=== PATIENT | male | born 1965 | race African-American/Black ===

== ENCOUNTER 2025-03-08 11:15 | Emergency (ER) | payer OTHER, SELFPAY ==
[2025-03-08 11:22] VITALS: BP 155/94; PULSE 82; RESP 18; TEMP 36.9; O2SAT 96; BMI 41.2
--- NOTE | 2025-03-08 11:30 | ED.GENADULT ---
HPI - General Adult General Date Seen: 03/08/25 Chief complaint: Extremity Pain/Injury, Lower Stated complaint: Both back, ulcers Time Seen by Provider: 03/08/25 11:22 History of Present Illness HPI narrative: 59-year-old male presenting to the ER today with ulcers on the backs of his legs. He has a past history of hypertension (sounds like he has a strong family history of bad hypertension and his hypertension has been difficult for him to control. He typically has high blood pressure and often has diastolic blood pressure greater than 100 despite multiple antihypertensives), peripheral edema, seizure disorder (well controlled on phenytoin). He does not have any history of coronary disease or stents or known history of peripheral artery disease. No history of diabetes. 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 He has been back over the road since last August, 7 months ago. 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 He attributes this to keeping his feet down in a dependent position while driving. Several weeks for a few months ago he began to develop ulcers on his shins in the back of his calves. No trauma and no known specific reason for them to develop. They were initially blisters and then he started draining a lot of clear fluid. Then the blisters broke opened, leading to development of ulcers that have not healed since they opened. He works as an [employer] national dedicated truck driver. He grew up in [place] but now lives near [place], [place]. 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 He actually had to drive out to [facility] a couple weeks ago to attend the of his nephew who unexpectedly in a car crash. While he was in [place] he noted that he was developing redness around some of the ulcer so he saw [place] and was put on antibiotics for cellulitis. He was prescribed doxycycline and trimethoprim sulfamethoxazole. He could not take the trimethoprim because it interacts with his seizure med. He did take the doxycycline. He also feels like the redness is got a little bit better but is not resolved. He shows me pictures on his smart phone of his calves and ulcers dated February 19 and they clearly were inflamed and erythematous with a small amount of purulent material in the ulcer. He says they have gotten better since then but they are still red. Now days they are draining more clear fluid rather than pus. He came here to the [facility] today because he is currently driving, over the road and stopped off here. He was in this area of the country for work. He would like to get treatment for his ulcers and help the redness go away. He is not having any fever or chills. No shortness of breath. No chest pain. He does have his chronic peripheral edema but it is symmetric and bilateral. No unilateral swelling. He does have some burning pain in his shins in Sergio the ulcers are but otherwise no numbness in his feet. He is not diabetic. No known history of neuropathy. He knows that his blood pressure is very difficult to control any typically has elevated blood pressure with diastolic more than 100. He is pleased and surprised to see that his diastolic blood pressure is in the 90s today. This is actually low for him. He is already transitional living specialist they do all, hydrochlorothiazide, furosemide, spironolactone, losartan, and clonidine for his blood pressure. He also takes a statin. He is on phenytoin for his seizures Related Data Home Medications ?Medication ?Instructions ?Recorded ?Confirmed carvedilol 12.5 mg tablet 12.5 mg PO BID 03/08/25 03/08/25 clonidine HCl 0.2 mg tablet 0.2 mg PO BID 03/08/25 03/08/25 furosemide 40 mg tablet (Lasix) 40 mg PO DAILY 03/08/25 03/08/25 hydralazine 50 mg tablet 50 mg PO BID 03/08/25 03/08/25 indomethacin 50 mg capsule 50 mg PO BID 03/08/25 03/08/25 losartan 50 mg tablet (Cozaar) 50 mg PO DAILY 03/08/25 03/08/25 phenytoin sodium extended 100 mg 100 mg PO TID 03/08/25 03/08/25 capsule Previous Rx's ?Medication ?Instructions ?Recorded doxycycline monohydrate 100 mg 100 mg PO BID #14 caps 03/08/25 capsule furosemide 40 mg tablet 40 mg PO BID #14 tabs 03/08/25 Allergies Allergy/AdvReac Type Severity Reaction Status Date / Time No Known Drug Allergies Allergy Verified 03/08/25 11:32 Exam Narrative: Exam Narrative: Constitutional: Appears well-developed and well-nourished. Alert. Conversant. Non toxic. HENT: Head: Atraumatic. Nose: Nose normal. Mouth/Throat: Oral mucosa is clear and moist. no trismus. Pharynx normal. Tonsils symmetric. No tonsillar enlargement, erythema, or exudate. Eyes: Conjunctivae normal. EOM normal. Pupils equal, round, and reactive to light. No scleral icterus. Neck: Normal range of motion. Neck supple. No tracheal deviation present. No JVD Cardiovascular: Normal rate, regular rhythm. No gallop. No friction rub. No murmur heard. Symmetric radial artery pulses Pulmonary/Chest: Effort normal. No stridor. No respiratory distress. No wheezes. No rales. No rhonchi . No tenderness. Musculoskeletal: RUE: Normal range of motion. No tenderness. No deformity LUE: Normal range of motion. No tenderness. No deformity RLE: Normal range of motion. 2+ pitting edema. Mild tenderness of the skin on the anterior hurtado. No deformity LLE: Normal range of motion. 2+ pitting edema. Mild tenderness of the skin on the anterior hurtado. No deformity Lymph: No ascending lymphangitis Neurological: Alert and oriented to person, place, and time. Normal strength. CN II-VII intact. No sensory deficit. GCS eye subscore is 4. GCS verbal subscore is 5. GCS motor subscore is 6. Normal coordination Skin: The patient does have some hyperpigmentation of the skin of his anterior shins consistent with some chronic venous stasis disease. There are also scattered ulcers on both anterior and anteromedial shins and on both posterior calf is. Some these appear to be recently developed blisters that are just open. Others appear to be more chronic areas of skin where there is breakdown of the epidermis. None of the ulcers are deeper tunneling or penetrate through the dermis. There is some erythema surrounding the ulcers especially on the patient's left posterior calf and posterior medial calf and a little bit on the right anteromedial calf. No signs of ascending lymphangitis. No palpable fluctuance or crepitus in the soft tissue. Normal range of motion in his knees and ankles. He does have a healed anterior knee incision on his left knee from an old sports related knee injury. Skin is otherwise warm and dry. No rash noted. No pallor. Normal capillary refill. Psychiatric: Normal mood. Normal affect. Very pleasant. Const: Vital Signs, click to edit/add: Vital Signs - 24 hr 03/08/25 11:22 Temperature 98.5 F Pulse Rate [Right Pulse Oximeter] 82 Respiratory Rate 18 Blood Pressure [Ri ght Upper Arm] 155/94 H Pulse Oximetry 96 Oxygen Delivery Me thod Room Air Course Vital Signs Vital signs: Initial Vital Signs Temperature 98.5 F 03/08/25 11:22 Temperature Source Temporal Artery Scan 03/08/25 11:22 Pulse Rate 82 03/08/25 11:22 Pulse Rhythm Regular 03/08/25 11:22 Pulse Strength 3+ Normal 03/08/25 11:22 Respiratory Rate 18 03/08/25 11:22 Blood Pressure 155/94 H 03/08/25 11:22 Blood Pressure Mean 114 H 03/08/25 11:22 Blood Pressure Position Sitting 03/08/25 11:22 Pulse Oximetry 96 03/08/25 11:22 Oxygen Delivery Method Room Air 03/08/25 11:22 Vital Signs Temperature 98.5 F 03/08/25 11:22 Pulse Rate 82 03/08/25 11:22 Respiratory Rate 18 03/08/25 11:22 Blood Pressure 155/94 H 03/08/25 11:22 Pulse Oximetry 96 03/08/25 11:22 Oxygen Delivery Method Room Air 03/08/25 11:22 Temperature 98.5 F 03/08/25 11:22 Pulse Rate 82 03/08/25 11:22 Respiratory Rate 18 03/08/25 11:22 Blood Pressure 155/94 H 03/08/25 11:22 Pulse Oximetry 96 03/08/25 11:22 Oxygen Delivery Method Room Air 03/08/25 11:22 Medical Decision Making MDM Narrative Medical decision making narrative: Very pleasant 5-year-old gentleman with a complex past medical history including hypertension which has been very difficult for his doctors to get under control, chronic peripheral edema, seizure disorder. He does not have any known history of peripheral artery disease, diabetes, cancer, or immunosuppression. He presents to the ER today with concern that he has erythema on the skin of his lower legs and burning of the skin of his lower legs around the ulcers. On exam he does have some erythema there and I am concerned that there may be a cellulitis around the ulcers. I do not detect any evidence for abscess, necrotizing infection. At this point I do not think he needs admission for surgical debridement or drainage. I do not think he needs ultrasound or CT to look for deeper all infections. I do think we need to put him on antibiotics to cover for possible cellulitis. He has already been on cephalexin with her is not completely improving. He cannot take Bactrim because it interacts with his seizure med. Will try doxycycline which would give him coverage for skin alyce as well as community-acquired MRSA. Patient understands that it is very important to monitor the redness carefully and for return to the his nearest ER if it is getting worse. Even if it gets better he is to follow up with his regular doctors at home intense see his soon as possible. Ideally less than 5-7 days. At this point he is not febrile, he is not systemically ill. I do not think he needs to be admitted for IV antibiotics. Cause of the ulcers is probably related to his chronic peripheral edema. At this point he does have palpable PT pulses and I do not see any sign of acute or critical limb ischemia requiring admission for immediate vascular surgery intervention. However he may need further vascular workup with his doctors in [place]. He is already on furosemide, hydrochlorothiazide, spironolactone for his peripheral edema. Will have him temporarily increase his dose of furosemide from 40 mg once daily up to 40 mg b.i.d. for 7 days. He will follow up with his doctors at home in [place] to make sure he gets follow-up labs and kidney function check, potassium measurement within 5-7 days. I do not think the skin breakdown is Sheikh Urban's or toxic epidermal necrolysis. Based on provided history it has been there for several months and is isolated only to his lower extremities. At this point would not make any meds changes for his seizures or phenytoin. Precautions for return to the ER reviewed. Need for ongoing follow-up care for this problem is reviewed. Patient verbalizes understanding. Questions answered. Prescriptions for doxycycline 100 b.i.d. for 10 days and for furosemide 40 b.i.d. for 7 days sent to his pharmacy at [facility]. Discharge Plan Discharge Clinical Impression: Lower extremity ulceration, Edema, peripheral, Cellulitis Patient Disposition: Home, Self-Care Condition: Stable Instructions: Cellulitis (ED), Leg Edema (ED) Additional Instructions: As we discussed, to try to help get your leg wounds to heal, we are going to put you back on antibiotic. Start the new antibiotic (doxycycline) today and take it twice daily for 10 days. We are also going to have you temporarily increase your dose of your water pill (furosemide). Your normal dose of furosemide is 40 mg once per day. For the next 7 days increase to 40 mg twice per day. Stay on your other blood pressure medications. It is very important for you to get a checkup with your regular doctor in 5-7 days to have a recheck for the swelling in your legs and ulcers and also have your doctor check some blood tests to look at your kidney function and electrolytes. Please follow-up with your regular doctors at home within 5-7 days, or sooner, if possible. Please try to keep your feet elevated whenever possible. Please use antibiotic ointment and dressings on your ulcers to protect them. If you have worsening problems especially worsening ulcers, pus draining from your wounds, spreading redness, worsening swelling, or fever, please return to the ER right away. Prescriptions: New doxycycline monohydrate 100 mg capsule 100 mg PO BID Qty: 14 0RF furosemide 40 mg tablet 40 mg PO BID Qty: 14 0RF No Action phenytoin sodium extended 100 mg capsule 100 mg PO TID indomethacin 50 mg capsule 50 mg PO BID Rx Instructions: administer with food or milk carvedilol 12.5 mg tablet 12.5 mg PO BID Rx Instructions: must administer with a meal/food furosemide [Lasix] 40 mg tablet 40 mg PO DAILY hydralazine 50 mg tablet 50 mg PO BID clonidine HCl 0.2 mg tablet 0.2 mg PO BID losartan [Cozaar] 50 mg tablet 50 mg PO DAILY Stand Alone Forms: [employer] Info Instructions
--- NOTE | 2025-03-09 14:45 | ED.NURSE ---
[facility] pharmacy in [place] called regarding pt rx. Advised rx was sent to [facility] [place]. Pharmacist stated they would call [facility] and have rx txfrd to them at the pt's request.
== END 2025-03-08 12:56 | disposition home or self-care (01) ==
LOC: ED 12:38
PROVIDERS: Emergency Provider Emergency Medicine
DX: R60.0 Localized edema (principal); L03.115 Cellulitis of right lower limb; L03.116 Cellulitis of left lower limb
CPT/HCPCS: 99282; 99283

== ENCOUNTER 2025-07-02 23:35 | Emergency (ER) | payer OTHER, SELFPAY ==
--- OUTSIDE RECORDS SUMMARY | 2009-01-18 04:40 | XMS_ITS | Continuity of Care Document ---
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 [id number], [place], [address], [place]. tel:[phone] Family History Family Member Type Diagnosis Age At Onset No Information Payers Payer name Insurance type Covered alliance party ID Authordianeharjinder mata(s) [employer] CI [id number] Social History Type Description Quantity Date Captured Comments Sex Male Smoking Status No Information Chief Complaint And Reason For Visit No Information Reason For Referral Reason For Referral No Information History Of Present Illness Encounter Date Complaint History Of Prese nt Illness No Information Functional Status Date Functional Assessmen t No Information Instructions Date Instruction Additional Infor mation No Information Assessments Type Assessment Date No Information Patient Care Teams Name Effective Dates (start - stop) Status Members No Information
[2025-07-02 23:43] VITALS: BP 178/115; PULSE 106; RESP 20; TEMP 36.7; O2SAT 97; BMI 41.2
[2025-07-03] MEDS: ACETAMINOPHEN 500 MG TABLET 1000 MG PO (00:57)
--- NOTE | 2025-07-03 01:04 | ED.GENADULT ---
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 Clearly this is a chronic condition. He does not wear any type of compression socks, support stockings etc.. 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 Home is in the [facility]. He drives for a local [employer] and does spend some time up in this area but is typically over the road. He reports that he has been working the last few days and did not have time to come in otherwise besides the wee hours at an out of [facility]. No fevers. No history of DVT or PE. Is not anticoagulated. No increased swelling in the legs noted, this is his baseline. It clear based on our conversation that he picks and chooses which medications to take, is no longer using his lisinopril consider read online that it would interact with his Dilantin that he takes for trigeminal neuralgia. He does not know if he has a history of liver or kidney disease. Has not tried Tylenol, ibuprofen or other similar karb-juc-iydvzhn agents for his pain. Notice increased weeping from the posterior distal lower right leg ulcer for the past 2-3 days. Reports that this has been treated with antibiotics in the past but ulcers have never fully closed up. He has never been to a rn wound for these ulcers. Denies a history of diabetes. Denies recent systemic symptoms. Has not been recently evaluated by primary care or urgent care. We have no prior wound cultures and he is unable to tell me prior culture results but denies any prior resistant infections. Goes on a tangent about how 1 of the antibiotics he was on at 1 time may have interacted with his Dilantin. He could not remember which antibiotic. Past medical history is not well known and patient would not be considered a good historian regarding this. We do not have records. Seems like these are in the [facility]. Medications listed do seem accurate with the exception of the listed doxycycline which he is not currently using. He denies tobacco use. No recent surgery. ROS is notable for the leg symptoms only, otherwise denies systemic symptoms times 12 systems. Related Data Home Medications ?Medication ?Instructions ?Recorded ?Confirmed carvedilol 12.5 mg tablet 12.5 mg PO BID 03/08/25 03/08/25 clonidine HCl 0.2 mg tablet 0.2 mg PO BID 03/08/25 03/08/25 furosemide 40 mg tablet (Lasix) 40 mg PO DAILY 03/08/25 03/08/25 hydralazine 50 mg tablet 50 mg PO BID 03/08/25 03/08/25 indomethacin 50 mg capsule 50 mg PO BID 03/08/25 03/08/25 losartan 50 mg tablet (Cozaar) 50 mg PO DAILY 03/08/25 03/08/25 phenytoin sodium extended 100 mg 100 mg PO TID 03/08/25 03/08/25 capsule Previous Rx's ?Medication ?Instructions ?Recorded doxycycline monohydrate 100 mg 100 mg PO BID #14 caps 03/08/25 capsule furosemide 40 mg tablet 40 mg PO BID #14 tabs 03/08/25 Allergies Allergy/AdvReac Type Severity Reaction Status Date / Time No Known Drug Allergies Allergy Verified 03/08/25 11:32 Exam Const: Vital Signs, click to edit/add: Vital Signs - 24 hr 07/02/25 23:43 Temperature 98.0 F Pulse Rate [Pulse Oximeter] 106 H Respiratory Rate 20 Blood Pressure [Ri ght Upper Arm] 178/115 H Pulse Oximetry 97 Oxygen Delivery Me thod Room Air Documenting provider has reviewed patient's vital signs: yes Common normals: no apparent distress General appearance: cooperative HENMT: Common normals: normocephalic and moist oral mucous membranes Head and scalp: normocephalic Face and sinus: normal facial exam Throat: posterior oropharynx normal Eye: Common normals: conjunctivae normal General eye: normal appearance of both eyes Conjunctiva: conjunctiva(e) normal Neck & C-Spine: General: normal visual inspection Resp: Common normals: normal respiratory effort, no use of accessory muscles and clear to auscultation bilaterally Effort & inspection: able to speak in complete sentences Auscultation: clear to auscultation bilaterally Cardio: Common normals: regular rate, regular rhythm, S1 normal heart sound, S2 normal heart sound and no murmurs Rate: regular rate Rhythm: regular rhythm Heart sounds: S1 normal and S2 normal Extremity: Other: Both lower extremities have chronic swelling, healed over skin ulcers, skin thickening and hemosiderin deposits consistent with chronic venous stasis. 1 cm open area on posterior right lateral tibia with slight purulent discharge, no odor is cultured. Mild surrounding redness and warmth. No streaking of redness up the leg. There are a few other blisters on each leg but no other open wounds. There are a few healed craters that have granulated over. Bilateral 2+ dependent edema. Normal pedal pulses bilaterally no ulcerations on the feet or toes. Neuro: Common normals: moves all extremities and no focal motor deficits Motor exam: strength 5/5 throughout Psych: Appearance: grossly normal Attitude: engaged Activity/motor behavior: appropriate eye contact Skin: Narrative: Besides the right lower extremities,, no other open wounds. Course Course ED Course: 59-year-old male with bilateral chronic venous stasis ulcers, 1 with features suggestive of infection. Cultures collected. No hypotension but does have some mild tachycardia. We do not know much of this person and I am concerned with underlying chronic kidney disease or other factors that would influence my antibiotic choice. Will obtain comprehensive metabolic panel, blood culture, CBC, CRP. There are no obvious signs of osteomyelitis. Counseled patient regarding the need for compression and elevation of his legs. He asked for pain medication. I am very hesitant to use narcotics for this chronic condition. Will give Tylenol 1000 mg p.o. x1 and await blood work. Reevaluation(s) Reevaluation #1: Update: Cultures have been collected. Blood work looks pretty reassuring. No overwhelming leukocytosis. Mild elevation of CRP. No severe hyperglycemia. Does have some signs of mild chronic kidney disease, not surprising. Counseled patient on findings overall. I am hesitant to recommend high-dose NSAIDs due to his chronic kidney disease. Because he is out of town and this is mostly a chronic condition, I am also quite hesitant to give narcotics even though I do believe that this is painful for him. Discussed antibiotics. Stressed the importance of compression for treatment of the chronic venous stasis. Will cover open wound with antibiotic ointment and Telfa, instructed on wound care. Luisito wrap both legs. Continue diuretics. Follow up with primary care provider in 3 days for recheck. Start doxycycline 100 mg p.o. b.i.d. for 10 days. Limited supply of tramadol given from [place] as well for severe pain. Instructed not to drive for 8 hours. Counseled on [id number] Tylenol. Blood and wound cultures are pending. Will call patient if these are unexpectedly positive or if we need to change antibiotic treatment. Alarm symptoms reviewed that would warrant re-evaluation in ED in the interim. Vital Signs Vital signs: Initial Vital Signs Temperature 98.0 F 07/02/25 23:43 Temperature Source Temporal Artery Scan 07/02/25 23:43 Pulse Rate 106 H 07/02/25 23:43 Pulse Rhythm Regular 07/02/25 23:43 Respiratory Rate 20 07/02/25 23:43 Blood Pressure 178/115 H 07/02/25 23:43 Blood Pressure Mean 136 H 07/02/25 23:43 Blood Pressure Position Sitting 07/02/25 23:43 Pulse Oximetry 97 07/02/25 23:43 Oxygen Delivery Method Room Air 07/02/25 23:43 Vital Signs Temperature 98.0 F 07/02/25 23:43 Pulse Rate 106 H 07/02/25 23:43 Respiratory Rate 20 07/02/25 23:43 Blood Pressure 178/115 H 07/02/25 23:43 Pulse Oximetry 97 07/02/25 23:43 Oxygen Delivery Method Room Air 07/02/25 23:43 Temperature 98.0 F 07/02/25 23:43 Pulse Rate 106 H 07/02/25 23:43 Respiratory Rate 20 07/02/25 23:43 Blood Pressure 178/115 H 07/02/25 23:43 Pulse Oximetry 97 07/02/25 23:43 Oxygen Delivery Method Room Air 07/02/25 23:43 Medications Administered Medications: Discontinued Medications Generic Name Dose Route Start Last Admin Trade Name Freq PRN Reason Stop Dose Admin Acetaminophen 1,000 mg 07/03/25 00:56 07/03/25 00:57 Acetaminophen 500 Mg Tablet PO 07/03/25 00:57 1,000 mg ONCE ONE Administration Medical Decision Making Lab Data Lab results reviewed: Yes I reviewed the patient's lab results Lab results narrative: Mild chronic kidney disease. Mild elevation in CRP. No signs of hyperglycemia. No significant leukocytosis. Overall pretty reassuring. Wound culture pending Labs: Lab Results 10/24/25 Range/Units 01:12 WBC 9.50 (4.50-11.00) K/uL RBC 4.45 (4.30-5.90) m/uL Hgb 13.0 L (13.5-17.5) gm/dL Hct 39.6 (37.0-53.0) % MCV 89 (80-100) fL MCH 29 (26-34) pg MCHC 33 (32-36) gm/dL RDW Coeff of Harrison 14.5 (11.5-15.5) % Plt Count 184 (140-440) K/uL Neut % (Auto) 45.1 (42.0-72.0) % Lymph % (Auto) 39.8 (20-44) % Rhea % (Auto) 12.2 H (0.0-11.0) % Eos % (Auto) 2.4 (0.0-7.0) % Baso % (Auto) 0.4 (0.0-3.0) % Neut # (Auto) 4.28 (1.7-7.0) K/uL Lymph # (Auto) 3.78 H (0.90-2.90) K/uL Rhea # (Auto) 1.20 H (0.00-0.90) K/UL Eos # (Auto) 0.23 (0.00-0.50) K/uL Baso # (Auto) 0.04 (0.00-0.30) K/uL Abs Immat Gran (auto) 0.01 (0.00-0.30) K/uL Imm/Tot Granulo (auto) 0.1 % Sodium 133 L (135-149) mmol/L Potassium 3.4 L (3.6-5.1) mmol/L Chloride 97 (96-114) mmol/L Carbon Dioxide 29 (20-32) mmol/L Anion Gap 7 (7-15) mEq/L BUN 24 (7-30) mg/dL Creatinine 1.6 H (0.5-1.5) mg/dL Estimated Creat Clear 58.68 Estimated GFR 49 ml/min Glucose 112 (60-115) mg/dL Lactate 1.7 (0.5-1.9) mmol/L Calcium 8.9 (8.4-10.6) mg/dL Total Bilirubin 0.3 (0.1-1.5) mg/dL AST 57 H (12-35) U/L ALT 48 (4-50) U/L Alkaline Phosphatase 183 H (40-150) U/L C-Reactive Protein 2.5 H (0.5-1.0) mg/dL Total Protein 8.6 H (6.0-8.3) g/dL Albumin 4.1 (3.3-5.0) g/dL Discharge Plan Discharge Clinical Impression: Infected stasis ulcer of right lower extremity Patient Disposition: Home, Self-Care Condition: Stable Instructions: Chronic Wounds (ED) Additional Instructions: As we discussed, these blisters and swelling in your legs are from chronic weak veins it is important that you are wearing heavy compression socks or Luisito wraps to help with this chronic swelling or these wounds will never heal. When you get these blisters, the bacteria that normally live on your skin can invade and cause infections like has happened today. I am starting you on an antibiotic, doxycycline. You will take 1 pill 2 times daily for 2 weeks. This has to be treated for a long period of time due to the nature of these chronic wounds. If you do not use compression and elevation of your legs, these will never heal and will become infected again. For pain, I recommend Tylenol 1000 mg 4 times daily. I have given you a limited supply of tramadol, a narcotic pain medication that you may use for severe pain. You may carefully use NSAIDs like ibuprofen 600 mg no more than twice daily because her labs do reflect some chronic kidney disease. It is important that you are following up with your primary care provider regarding this and I would strongly recommend that you be treated with an LUISITO-inhibitor like lisinopril to prevent worsening long-term kidney damage. It will take several days before you start to notice any improvement in your symptoms. But if you have very high fever, symptoms of severe weakness, sepsis or other dangerous signs, please return to emergency department. We have drawn blood and wound cultures and will call you if we need to change antibiotics. Do not drive on the pain medication for at least 8 hours. Activity Level: Activity as Tolerated Discharge Diet: Regular Prescriptions: No Action phenytoin sodium extended 100 mg capsule 100 mg PO TID indomethacin 50 mg capsule 50 mg PO BID Rx Instructions: administer with food or milk carvedilol 12.5 mg tablet 12.5 mg PO BID Rx Instructions: must administer with a meal/food furosemide [Lasix] 40 mg tablet 40 mg PO DAILY hydralazine 50 mg tablet 50 mg PO BID clonidine HCl 0.2 mg tablet 0.2 mg PO BID losartan [Cozaar] 50 mg tablet 50 mg PO DAILY doxycycline monohydrate 100 mg capsule 100 mg PO BID Qty: 14 0RF furosemide 40 mg tablet 40 mg PO BID Qty: 14 0RF Follow Up/Referrals: Provider,Not a Local [Primary Care Provider, Family Practice] Stand Alone Forms: [employer] Info Instructions
--- OUTSIDE RECORDS SUMMARY | 2025-07-03 01:14 | XMS_ITS | Clinical Summary ---
Author Organization [facility] Address [address] [place] [address] Phone Care Team Providers Care Ethylbenzene Cracking Supervisor Name Role Phone None, No Pcp Primary Care Provider Unavailabl e Allergies No known active allergies Medications gabapentin (NEURONTIN) 300 mg capsule Take 1 capsule by mouth EVERY SHIFT 05/27/2024 Active indomethacin (INDOCIN) 50 MG capsule Take 1 capsule by mouth EVERY SHIFT 04/03/2024 Active cloNIDine (CATAPRES) 0.2 MG tablet Take 1 tablet by mouth daily Active hydrALAZINE (APRESOLINE) 50 MG tablet Take 1 tablet by mouth 3 times daily Active losartan-hydroC HLOROthiazide (HYZAAR) 50-12.5 MG per tablet Take 1 tablet by mouth daily Active Immunizations Immunization Administration Dates Next Due Tdap 12/11/2024 Social History Tobacco Use Types Packs/Day Years Used Date Smoking Tobacco: Former Cigarettes Smokeless Tobacco: Never Tobacco Cessation:Counseling Given: Not Answered Alcohol Use Standard Drinks/Week Comments Yes 0 (1 standard drink = 0.6 oz pur e alcohol) ocassionally Sex and Gender Information Value Date Recorded Sex Assigned at Not on file Legal Sex Male 3:03 AM CDT Gender Identity Not on file Sexual Orientation Not on file Last Filed Vital Signs Vital Sign Reading Time Taken Comments Blood Pressure 164/108 12/11/2024 3:53 AM CDT Pulse 78 12/11/2024 3:53 AM CDT Temperature 36.8 C (98.2 F) 12/11/2024 3:53 AM CDT Respiratory Rate 20 12/11/2024 3:53 AM CDT Oxygen Saturation 96% 12/11/2024 3:53 AM CDT Inhaled Oxygen Concentration - - Weight 152.4 kg (336 lb) 12/11/2024 3:06 AM CDT Height 190.5 cm (6' 3) 12/11/2024 3:06 AM CDT Body Mass Index 42 12/11/2024 3:06 AM CDT Plan of Treatment Health Maintenance Due Date Last Done Comments HIV Screening 1965 Colonoscopy 2009 Zoster Vaccines (1 of 2) 2014 RSV Vaccines (1 - Risk 60-74 years 1-dose series) 2024 COVID-19 Vaccine (1 - 2023-2 5 season) 2025 Influenza Vaccine (#1) 2025 Hemoglobin A1C 10/13/2027 10/13/2024 DTaP,Tdap,and Td Vaccines (3 - Td or Tdap) 12/11/2034 12/11/2024, 12/13/2023 HIB Vaccines Aged Out No longer eligi ble based on patient's age to complete this topic HPV Immunization Aged Out No longer e ligible based on patient's age to complete this topic Hepatitis A Vaccines Aged Out No long er eligible based on patient's age to complete this topic Hepatitis B Vaccine Aged Out No longe r eligible based on patient's age to complete this topic MENINGOCOCCAL VACCINES (MCV4) Aged Out No longer eligible based on patient's age to complete this topic MENINGOCOCCAL VACCINES (MenB) Aged Out No longer eligible based on patient's age to complete this topic POLIO VACCINES Aged Out No longer sergey gible based on patient's age to complete this topic ROTAVIRUS VACCINES Aged Out No longer eligible based on patient's age to complete this topic Insurance BCBS Care Teams Ethylbenzene Cracking Supervisor Relationship Specialty Start Date End Date None, No Pcp [address] [facility] [place] [address] PCP - General Family Medicine 12/11/24
--- OUTSIDE RECORDS SUMMARY | 2025-07-03 01:14 | XMS_ITS | Data Portability ---
Author Organization [place] [facility] [employer] [employer] Address [address] [place] [address] Assessment No assessment recorded. Plan of Treatment Reminders Order Date Submit Date Provider Last Modified By Organization Details Last Modified Time Details Appointments None recorded. Lab urinalysis , dipstick 2022 023 [email or web address] Main Office, [address], [place], [address], 12:53:07 Referral None recorded. Procedures None recorded. Surgeries None recorded. Imaging None recorded. Medication Orders None recorded. Patient TargetsNo targets recorded. Patient InstructionsNo instructions recorded. Reason for Referral None Reported. Results Created Date Observation Date Name Description Value Unit Range Abnormal Flag Note LastModifiedBy Organization Detail LastModifiedTime 06/15/2006/15/2023 urina lysis , dipst ick Leukocytes - Not Available Main Of fice [address], [place], [address], 06/15/2023 11:26:28 06/15/2006/15/2023 urina lysis , dipst ick Nitrite - Not Available Main Offic e [address], [place], [address], 06/15/2023 11:26:28 06/15/2006/15/2023 urina lysis , dipst ick Urobilinogen 0.2 Not Available Main Office [address], [place], [address], 06/15/2023 11:26:28 06/15/2006/15/2023 urina lysis , dipst ick Protein 15 Not Available Main Offic e [address], [place], [address], 06/15/2023 11:26:28 06/15/2006/15/2023 urina lysis , dipst ick pH 6.0 Not Available Main Offic e [address], [place], [address], 06/15/2023 11:26:28 06/15/2006/15/2023 urina lysis , dipst ick Blood - Not Available Main Offic e [address], [place], [address], 06/15/2023 11:26:28 06/15/2006/15/2023 urina lysis , dipst ick Specific [place] 1.015 Not Available Main O ffice [address], [place], [address], 06/15/2023 11:26:28 06/15/2006/15/2023 urina lysis , dipst ick Ketone - Not Available Main Offic e [address], [place], [address], 06/15/2023 11:26:28 06/15/2006/15/2023 urina lysis , dipst ick Bilirubin - Not Available Main Off ice [address], [place], [address], 06/15/2023 11:26:28 06/15/2006/15/2023 urina lysis , dipst ick Glucose - Not Available Main Offic e [address], [place], [address], 06/15/2023 11:26:28 06/15/2006/15/2023 urina lysis , dipst ick Appearance clear Not Available Main Of fice [address], [place], [address], 06/15/2023 11:26:28 06/15/20 23 06/15/2023 urina lysis , dipst ick Color Jazmyn Not Available Main Offic e [address], [place], [address], 06/15/2023 11:26:28 Result Notes None recorded. Medical Equipment None Reported. Allergies No known drug allergies Vitals Date Recorded Body height Body mass index (BMI) Body weight Body temperature Heart rate Oxygen saturation Oxygen saturation in Arterial blood by Pulse oximetry Systolic And Diastolic Provider Name and Address Organization Details Last Updated DateTime 3 190.5 cm 40.7 kg/m2 220357. 11 g 97.8 [degF] 82 /min 97 % 97 % 132/84 mm[Hg] MARISA MASCORRO - [employer] 3 11:34:20 Social History Question Answer Notes LastModified by [employer] Details LastModified Time Tobacco Smoking Status Former Smoker Not Available [employer] 06/15/2023 10:58:40 Do You Have Smoke And Carbon Monoxide Detectors In Your Home? Yes [email or web address] Information not available 06/15/2023 Sex: Unknown Functional Status Question Answer Note LastModified by [employer] Details LastModified Time What is your level of alcohol consumption? Occasional [email or web address] Information not available 06/15/2023 Do you or have you ever used smokeless tobacco? Never used smokeless tobacco [email or web address] Information not available 06/15/2023 Mental Status None recorded. Family History Nothing Reported. Medical History No medical history recorded. 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 Patient's health history and physical exam shows all normal findings as indicated on the attached DOT examinatio n report. Patient meets standards but requires periodic monitoring and qualifies only for 1 year. 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 Libra Matthews, PUMP ROOM OPERATOR [address], [place], [address], [facility] - [facility] [employer] 06/15/2023 12:53:18
[2025-07-03 01:25] LABS: Hematocrit* 39.6 % (37.0-53.0); Hemoglobin* 13.0 gm/dL (13.5-17.5); Immature Granulocytes Abs Auto 0.01 K/uL (0.00-0.30); Immature Granulocytes Pct Auto 0.1 %; Lymphocytes Absolute Auto 3.78 K/uL (0.90-2.90); Mean Corpuscular HGB Conc 33 gm/dL (32-36); Mean Corpuscular Hemoglobin 29 pg (26-34); Mean Corpuscular Volume 89 fL (80-100); RDW Coefficient of Variation % 14.5 % (11.5-15.5); Red Blood Count* 4.45 m/uL (4.30-5.90); White Blood Count* 9.50 K/uL (4.50-11.00)
[2025-07-03 01:31] LABS: Lactate Sepsis w/Reflex* 1.7 mmol/L (0.5-1.9)
[2025-07-03 01:32] LABS: Slide Review Reflex No
[2025-07-03 01:50] LABS: Chloride* 97 mmol/L (96-114)
[2025-07-03 01:51] LABS: Albumin* 4.1 g/dL (3.3-5.0); Potassium* 3.4 mmol/L (3.6-5.1); Sodium* 133 mmol/L (135-149)
[2025-07-03 01:53] LABS: Blood Urea Nitrogen* 24 mg/dL (7-30); Creatinine* 1.6 mg/dL (0.5-1.5); Est. Creatinine Clearance* 58.68; Estimated Glomerular Filt Rate 49 ml/min
[2025-07-03 01:54] LABS: Alanine Aminotransferase* 48 U/L (4-50); Alkaline Phosphatase* 183 U/L (40-150); Anion Gap 7 mEq/L (7-15); Aspartate Amino Transferase* 57 U/L (12-35); Bilirubin Total* 0.3 mg/dL (0.1-1.5); Calcium* 8.9 mg/dL (8.4-10.6); Carbon Dioxide* 29 mmol/L (20-32); Glucose* 112 mg/dL (60-115); Total Protein* 8.6 g/dL (6.0-8.3)
--- NOTE | 2025-07-05 11:29 | ED.GENADULT ---
HPI - General Adult General Chief complaint: Extremity Pain/Injury, Lower Stated complaint: right leg pain, leg ulcers Time Seen by Provider: 07/03/25 00:42 Source: patient Mode of arrival: ambulatory Limitations: no limitations History of Present Illness HPI narrative: 59-year-old male who was seen a few days ago in the ER by Dr. Whitten. Will culture this morning coming back positive for MSSA. He is already on doxycycline but this isolate is resistant to tetracyclines. I contacted the patient by phone. He states he still having intermittent pain in his ulcers but is not having fever, chills, body aches, or other symptoms of systemic illness. I think we need to change antibiotics. Will have him stop the doxycycline and switch to cephalexin. He wants to get it from [facility]. I printed out estimate prescription and he will pick it up from the ER triage desk this morning and seems to the new antibiotic. Precautions for return to the ER and need for re-evaluation reviewed with the patient. He verbalizes understanding. Related Data Home Medications ?Medication ?Instructions ?Recorded ?Confirmed carvedilol 12.5 mg tablet 12.5 mg PO BID 03/08/25 03/08/25 clonidine HCl 0.2 mg tablet 0.2 mg PO BID 03/08/25 03/08/25 furosemide 40 mg tablet (Lasix) 40 mg PO DAILY 03/08/25 03/08/25 hydralazine 50 mg tablet 50 mg PO BID 03/08/25 03/08/25 indomethacin 50 mg capsule 50 mg PO BID 03/08/25 03/08/25 losartan 50 mg tablet (Cozaar) 50 mg PO DAILY 03/08/25 03/08/25 phenytoin sodium extended 100 mg 100 mg PO TID 03/08/25 03/08/25 capsule Previous Rx's ?Medication ?Instructions ?Recorded doxycycline monohydrate 100 mg 100 mg PO BID #14 caps 03/08/25 capsule furosemide 40 mg tablet 40 mg PO BID #14 tabs 03/08/25 Allergies Allergy/AdvReac Type Severity Reaction Status Date / Time No Known Drug Allergies Allergy Verified 03/08/25 11:32 Course Vital Signs Vital signs: Initial Vital Signs Temperature 98.0 F 07/02/25 23:43 Temperature Source Temporal Artery Scan 07/02/25 23:43 Pulse Rate 106 H 07/02/25 23:43 Pulse Rhythm Regular 10/23/25 23:43 Respiratory Rate 20 07/02/25 23:43 Blood Pressure 178/115 H 07/02/25 23:43 Blood Pressure Mean 136 H 07/02/25 23:43 Blood Pressure Position Sitting 07/02/25 23:43 Pulse Oximetry 97 07/02/25 23:43 Oxygen Delivery Method Room Air 07/02/25 23:43 Vital Signs Temperature 98.0 F 07/02/25 23:43 Pulse Rate 106 H 07/02/25 23:43 Respiratory Rate 20 07/02/25 23:43 Blood Pressure 178/115 H 07/02/25 23:43 Pulse Oximetry 97 07/02/25 23:43 Oxygen Delivery Method Room Air 07/02/25 23:43 Temperature 98.0 F 07/02/25 23:43 Pulse Rate 106 H 07/02/25 23:43 Respiratory Rate 20 07/02/25 23:43 Blood Pressure 178/115 H 07/02/25 23:43 Pulse Oximetry 97 07/02/25 23:43 Oxygen Delivery Method Room Air 07/02/25 23:43 Medications Administered Medications: Discontinued Medications Generic Name Dose Route Start Last Admin Trade Name Freq PRN Reason Stop Dose Admin Acetaminophen 1,000 mg 07/03/25 00:56 07/03/25 00:57 Acetaminophen 500 Mg Tablet PO 07/03/25 00:57 1,000 mg ONCE ONE Administration Medical Decision Making Lab Data Labs: Lab Results 07/03/25 Range/Units 01:12 WBC 9.50 (4.50-11.00) K/uL RBC 4.45 (4.30-5.90) m/uL Hgb 13.0 L (13.5-17.5) gm/dL Hct 39.6 (37.0-53.0) % MCV 89 (80-100) fL MCH 29 (26-34) pg MCHC 33 (32-36) gm/dL RDW Coeff of [place] 14.5 (11.5-15.5) % Plt Count 184 (140-440) K/uL Neut % (Auto) 45.1 (42.0-72.0) % Lymph % (Auto) 39.8 (20-44) % [place] % (Auto) 12.2 H (0.0-11.0) % Eos % (Auto) 2.4 (0.0-7.0) % Baso % (Auto) 0.4 (0.0-3.0) % Neut # (Auto) 4.28 (1.7-7.0) K/uL Lymph # (Auto) 3.78 H (0.90-2.90) K/uL [place] # (Auto) 1.20 H (0.00-0.90) K/UL Eos # (Auto) 0.23 (0.00-0.50) K/uL Baso # (Auto) 0.04 (0.00-0.30) K/uL Abs Immat Gran (auto) 0.01 (0.00-0.30) K/uL Imm/Tot Granulo (auto) 0.1 % Sodium 133 L (135-149) mmol/L Potassium 3.4 L (3.6-5.1) mmol/L Chloride 97 (96-114) mmol/L Carbon Dioxide 29 (20-32) mmol/L Anion Gap 7 (7-15) mEq/L BUN 24 (7-30) mg/dL Creatinine 1.6 H (0.5-1.5) mg/dL Estimated Creat Clear 58.68 Estimated GFR 49 ml/min Glucose 112 (60-115) mg/dL Lactate 1.7 (0.5-1.9) mmol/L Calcium 8.9 (8.4-10.6) mg/dL Total Bilirubin 0.3 (0.1-1.5) mg/dL AST 57 H (12-35) U/L ALT 48 (4-50) U/L Alkaline Phosphatase 183 H (40-150) U/L C-Reactive Protein 2.5 H (0.5-1.0) mg/dL Total Protein 8.6 H (6.0-8.3) g/dL Albumin 4.1 (3.3-5.0) g/dL Discharge Plan Discharge Clinical Impression: Infected stasis ulcer of right lower extremity Patient Disposition: Home, Self-Care Condition: Stable Instructions: Chronic Wounds (ED) Additional Instructions: As we discussed, these blisters and swelling in your legs are from chronic weak veins it is important that you are wearing heavy compression socks or Luisito wraps to help with this chronic swelling or these wounds will never heal. When you get these blisters, the bacteria that normally live on your skin can invade and cause infections like has happened today. I am starting you on an antibiotic, doxycycline. You will take 1 pill 2 times daily for 2 weeks. This has to be treated for a long period of time due to the nature of these chronic wounds. If you do not use compression and elevation of your legs, these will never heal and will become infected again. For pain, I recommend Tylenol 1000 mg 4 times daily. I have given you a limited supply of tramadol, a narcotic pain medication that you may use for severe pain. You may carefully use NSAIDs like ibuprofen 600 mg no more than twice daily because her labs do reflect some chronic kidney disease. It is important that you are following up with your primary care provider regarding this and I would strongly recommend that you be treated with an LUISITO-inhibitor like lisinopril to prevent worsening long-term kidney damage. It will take several days before you start to notice any improvement in your symptoms. But if you have very high fever, symptoms of severe weakness, sepsis or other dangerous signs, please return to emergency department. We have drawn blood and wound cultures and will call you if we need to change antibiotics. Do not drive on the pain medication for at least 8 hours. Activity Level: Activity as Tolerated Discharge Diet: Regular Prescriptions: No Action phenytoin sodium extended 100 mg capsule 100 mg PO TID indomethacin 50 mg capsule 50 mg PO BID Rx Instructions: administer with food or milk carvedilol 12.5 mg tablet 12.5 mg PO BID Rx Instructions: must administer with a meal/food furosemide [Lasix] 40 mg tablet 40 mg PO DAILY hydralazine 50 mg tablet 50 mg PO BID clonidine HCl 0.2 mg tablet 0.2 mg PO BID losartan [Cozaar] 50 mg tablet 50 mg PO DAILY doxycycline monohydrate 100 mg capsule 100 mg PO BID Qty: 14 0RF furosemide 40 mg tablet 40 mg PO BID Qty: 14 0RF Follow Up/Referrals: Provider,Not a Local [Primary Care Provider, Family Practice] Stand Alone Forms: [employer] Info Instructions
== END 2025-07-03 03:10 | disposition home or self-care (01) ==
PROVIDERS: Emergency Provider Family Medicine
DX: L97.919 Non-pressure chronic ulcer of unspecified part of right lower leg with unspecified severity (principal); R60.0 Localized edema; B95.61 Methicillin susceptible Staphylococcus aureus infection as the cause of diseases classified elsewhere
CPT/HCPCS: 36415; 80053; 83605; 85025; 86140; 87040; 87070; 87186; 99281; 99284; A9270

== ENCOUNTER 2025-07-07 13:40 | Emergency (ER) | payer OTHER, SELFPAY ==
[2025-07-07 13:57] VITALS: BP 129/97; PULSE 100; RESP 16; TEMP 37.2; O2SAT 96; BMI 41.4
--- NOTE | 2025-07-07 15:27 | ED.GENADULT ---
HPI - General Adult General Date Seen: 07/07/25 Chief complaint: Extremity Pain/Injury, Lower Stated complaint: R leg infection Time Seen by Provider: 07/07/25 15:08 Source: patient Mode of arrival: ambulatory Limitations: no limitations History of Present Illness HPI narrative: Patient is a 59-year-old male presenting to the emergency department because he was not feel like his leg wound is healing appropriately. He is here for ulcers on his legs. He has been dealing with leg ulcers for several months now and was treated for cellulitis few months ago. Came back to the emergency department on 07/03/2025 and was told he has cellulitis and started on doxycycline. He says he was called 2 days ago and was switched from doxycycline to Keflex. States he initially had these ulcers since January but the left wants have improved will write ones were never fully healing but then got acutely worse over the past 8-9 days. He did show full does of his legs from a week ago and they are clearly worse now than they were back then. Denies fevers, chills, chest pain, shortness of breath, weakness, numbness. No other concerns noted at this time pedis may concern is the pain in his leg. Related Data Home Medications ?Medication ?Instructions ?Recorded ?Confirmed carvedilol 12.5 mg tablet 12.5 mg PO BID 03/08/25 03/08/25 clonidine HCl 0.2 mg tablet 0.2 mg PO BID 03/08/25 03/08/25 furosemide 40 mg tablet (Lasix) 40 mg PO DAILY 03/08/25 03/08/25 hydralazine 50 mg tablet 50 mg PO BID 03/08/25 03/08/25 indomethacin 50 mg capsule 50 mg PO BID 03/08/25 03/08/25 losartan 50 mg tablet (Cozaar) 50 mg PO DAILY 03/08/25 03/08/25 phenytoin sodium extended 100 mg 100 mg PO TID 03/08/25 03/08/25 capsule Previous Rx's ?Medication ?Instructions ?Recorded doxycycline monohydrate 100 mg 100 mg PO BID #14 caps 03/08/25 capsule furosemide 40 mg tablet 40 mg PO BID #14 tabs 03/08/25 Allergies Allergy/AdvReac Type Severity Reaction Status Date / Time No Known Drug Allergies Allergy Verified 07/07/25 13:55 Review of Systems Status of ROS: Reports: 10 or more systems reviewed and unremarkable except as noted in History and below Exam Narrative: Exam Narrative: Const: Well-nourished, Well-developed, in mild distress Eyes: PERRL, no conjunctival injection, and symmetrical lids HENT: Atraumatic external nose and ears. Moist mucous membranes. Neck: Symmetric, trachea midline, No thyromegaly. CVS: RRR, No murmurs or gallops. Peripheral pulses 2+ and equal in all extremities RESP: Unlabored respiratory effort. Clear to auscultation bilaterally. GI: Nontender/Nondistended, No rebound or guarding. MSK:Extremities w/o deformity, Normal Active ROM Skin: Warm, Dry. Multiple ulcers ranging in size from a few mm to 1 cm on his right lower posterior leg just above the ankle. Cool to the touch. There is some mild drainage. Neuro: Normal Muscle tone, No focal neurological deficits. Psych: Awake, Alert, & Oriented x3. Appropriate mood and affect. Const: Vital Signs, click to edit/add: Vital Signs - 24 hr 07/07/25 13:57 Temperature 98.9 F Pulse Rate [Pulse Oximeter] 100 Respiratory Rate 16 Blood Pressure [Ri ght Upper Arm] 129/97 H Pulse Oximetry 96 Oxygen Delivery Me thod Room Air Course Vital Signs Vital signs: Initial Vital Signs Temperature 98.9 F 07/07/25 13:57 Temperature Source Temporal Artery Scan 07/07/25 13:57 Pulse Rate 100 07/07/25 13:57 Respiratory Rate 16 07/07/25 13:57 Blood Pressure 129/97 H 07/07/25 13:57 Blood Pressure Mean 107 H 07/07/25 13:57 Blood Pressure Position Sitting 07/07/25 13:57 Pulse Oximetry 96 07/07/25 13:57 Oxygen Delivery Method Room Air 07/07/25 13:57 Vital Signs Temperature 98.9 F 07/07/25 13:57 Pulse Rate 100 07/07/25 13:57 Respiratory Rate 16 07/07/25 13:57 Blood Pressure 129/97 H 07/07/25 13:57 Pulse Oximetry 96 07/07/25 13:57 Oxygen Delivery Method Room Air 07/07/25 13:57 Temperature 98.9 F 07/07/25 13:57 Pulse Rate 100 07/07/25 13:57 Respiratory Rate 16 07/07/25 13:57 Blood Pressure 129/97 H 07/07/25 13:57 Pulse Oximetry 96 07/07/25 13:57 Oxygen Delivery Method Room Air 07/07/25 13:57 Medical Decision Making MDM Narrative Medical decision making narrative: Patient is a 59-year-old male presenting for right stasis ulcers of his right lower extremity. He was switched from doxycycline to Keflex but when I reviewed his wound culture is shows he is sensitive to doxycycline and should still be on doxycycline. I will give him another prescription of doxycycline. These feel cool to the touch and I do not believe this is treatment failure of the antibiotics. Instead this likely a stasis ulcer that needs wound care follow-up. I did speak to the wound care clinic in they state they will get him in this week for it. Did recommend cleaning Aquacel Ag on and wrapping with ABD pads in kirlex. I was told this can stay on until his appointment later this week. I spoke to him about that plan he agrees. Will also give him some pain medication to get him through the next few days. I informed him not to take gabapentin while he is taking the oxycodone. He takes gabapentin for trigeminal neuralgia. He has been trying it for his leg pain he states it has not been helping. Discharge Plan Discharge Clinical Impression: Stasis ulcer of right lower extremity Patient Disposition: Home, Self-Care Condition: Stable Instructions: Stasis Dermatitis (ED) Additional Instructions: You have a Wound Clinic appointment 1:45 PM on 07/08. I recommend to restart the doxycycline. Second prescription was sent. Oxycodone was also provided for pain control. I do recommend you also work on getting a primary care provider in the area if you are going to be here a while. We will provide information on how to do that. Prescriptions: No Action phenytoin sodium extended 100 mg capsule 100 mg PO TID indomethacin 50 mg capsule 50 mg PO BID Rx Instructions: administer with food or milk carvedilol 12.5 mg tablet 12.5 mg PO BID Rx Instructions: must administer with a meal/food furosemide [Lasix] 40 mg tablet 40 mg PO DAILY hydralazine 50 mg tablet 50 mg PO BID clonidine HCl 0.2 mg tablet 0.2 mg PO BID losartan [Cozaar] 50 mg tablet 50 mg PO DAILY doxycycline monohydrate 100 mg capsule 100 mg PO BID Qty: 14 0RF furosemide 40 mg tablet 40 mg PO BID Qty: 14 0RF Follow Up/Referrals: Provider,Not a Local [Primary Care Provider, Family Practice] Stand Alone Forms: [employer] Info Instructions
--- OUTSIDE RECORDS SUMMARY | 2025-07-07 15:50 | XMS_ITS | Data Portability ---
Author Organization [place] [facility] [employer] Address [address] [place] [address] Assessment No assessment recorded. Plan of Treatment Reminders Order Date Submit Date Provider Last Modified By Organization Details Last Modified Time Details Appointments None recorded. Lab urinalysis , dipstick 2022 023 [id number] Main Office, [address], [place], [address], 12:53:07 Referral None recorded. Procedures None recorded. [...] Of fice [address], [place], [address], 06/15/2023 11:26:28 06/15/2006/15/2023 urina lysis , dipst ick Nitrite - Not Available Main Offic e [address], [place], [address], 06/15/2023 11:26:28 06/15/2006/15/2023 urina lysis , dipst ick Urobilinogen 0.2 Not Available Main Office [address], [place], [address], 06/15/2023 11:26:28 06/15/2006/15/2023 urina lysis , dipst ick Protein 15 Not Available Main Offic e [address], [place], [address], 06/15/2023 11:26:28 06/15/2006/15/2023 urina lysis , dipst ick pH 6.0 Not Available Main Offic e [address], [place], [address], 06/15/2023 11:26:28 06/15/2006/15/2023 urina lysis , dipst ick Blood - Not Available Main Offic e [address], [place], [address], 06/15/2023 11:26:28 06/15/2006/15/2023 urina lysis , dipst ick Specific [place] 1.015 Not Available Main O ffice [address], [place], [address], 06/15/2023 11:26:28 06/15/2006/15/2023 urina lysis , dipst ick Ketone - Not Available Main Offic e [address], [place], [address], 06/15/2023 11:26:28 06/15/2006/15/2023 urina lysis , dipst ick Bilirubin - Not Available Main Off ice [address], [place], [address], 06/15/2023 11:26:28 06/15/2006/15/2023 urina lysis , dipst ick Glucose - Not Available Main Offic e [address], [place], [address], 06/15/2023 11:26:28 06/15/2006/15/2023 urina lysis , dipst ick Appearance clear Not Available Main Of fice [address], [place], [address], 06/15/2023 11:26:28 06/15/20 23 06/15/2023 urina lysis , dipst ick Color Jazmyn Not Available Main Offic e [address], [place], [address], 06/15/2023 11:26:28 Result Notes None recorded. Medical Equipment None Reported. Allergies No known drug allergies Vitals Date Recorded Body height Body mass index (BMI) Body weight Body temperature Heart rate Oxygen saturation Oxygen saturation in Arterial blood by Pulse oximetry Systolic And Diastolic Provider Name and Address Organization Details Last Updated DateTime 3 190.5 cm 40.7 kg/m2 992589. 11 g 97.8 [degF] 82 /min 97 % 97 % 132/84 mm[Hg] MARISA MASCORRO - [employer] [employer] [facility] 11:34:20 Social History Question Answer Notes LastModified by [employer] Details LastModified Time Tobacco Smoking Status Former Smoker Not Available [employer] 06/15/2023 10:58:40 Do You Have Smoke And Carbon Monoxide Detectors In Your Home? Yes [email or web address] Information not available 06/15/2023 Sex: Unknown Functional Status Question Answer Note LastModified by [employer] Details LastModified Time What is your level [...] ICD10 Code Diagnosis IMO Codes Diagnosis Note [id number] Jorje Dia DO Main Office [address] [place] [address] 06/15/2023 10:01:59 06/15/2023 15:16:48 History and physical examination, pre-employment [id number] Z02.1 Patient was seen for a routine [...] in today for dot physical. Libra Matthews, ECG TECHNICIAN [address], [place], [address], [facility] 06/15/2023 12:53:18
== END 2025-07-07 16:09 | disposition home or self-care (01) ==
PROVIDERS: Emergency Provider Student in an Organized Health Care Education/Training Program
DX: L97.919 Non-pressure chronic ulcer of unspecified part of right lower leg with unspecified severity (principal)
CPT/HCPCS: 99283

== ENCOUNTER 2025-07-08 13:34 | Outpatient (CLI) | payer OTHER, SELFPAY | END 2025-07-08 13:35 | disposition home or self-care (01) | LOC: WOUND 13:34 | PROVIDERS: Visit Provider Surgery | DX: I87.313 Chronic venous hypertension (idiopathic) with ulcer of bilateral lower extremity (principal); I89.0 Lymphedema, not elsewhere classified; L97.212 Non-pressure chronic ulcer of right calf with fat layer exposed; I10 Essential (primary) hypertension | CPT/HCPCS: 97597; G0463 ==